=== PATIENT | male | born 1940 | race Caucasian/White ===

== ENCOUNTER 2018-02-19 13:58 | Emergency (ER) | payer MEDICARE, OTHER ==
[2018-02-19] MEDS ORDERED: Aspirin 81 MG Tab.Chew PO ONE (14:07)
--- NOTE | 2018-02-19 14:19 | EDM.PDOC ---
ED HPI GENERAL MEDICAL PROBLEM - General Chief Complaint: Chest Pain Stated Complaint: [id number] CHEST CHEST Time Seen by Provider: 02/19/18 14:00 Source of Information: Reports: Patient History Limitations: Reports: No Limitations - History of Present Illness INITIAL COMMENTS - FREE TEXT/NARRATIVE: This 77 yo male patient was brought to the ED by his son due to intermittent chest pain. The patient reports he started to have left sided chest pain that started at about 0900 this morning. 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 The patient reports he was in [place] for similar symptoms about 1 week ago, but was not advised of anything serious happening. The patient reports he was watching a game show when the symptoms started. The patient reports most of his pain is in the left lateral chest/rib area. The patient denies any shortness of breath or other problems at this time. Onset: Today Onset Date: 02/19/18 Onset Time: 09:00 Duration: Intermittent Location: Reports: Chest (left lateral chest pain) Quality: Reports: Ache, Sharp, Throbbing Improves with: Reports: None Worsens with: Reports: None Context: Reports: Other Associated Symptoms: Reports: Chest Pain - Related Data Allergies Allergy/AdvReac Type Severity Reaction Status Date / Time No Known Allergies Allergy Verified 02/19/18 14:06 Home Meds: Home Meds Gabapentin [Neurontin] 600 mg PO BID 02/19/18 [History] Glimepiride 6 mg PO DAILY 02/19/18 [History] Lisinopril 5 mg PO DAILY 02/19/18 [History] Metoprolol Tartrate 50 mg PO BID 02/19/18 [History] Simvastatin [Zocor] 80 mg PO DAILY 02/19/18 [History] metFORMIN HCl [Metformin HCl] 1,000 mg PO BID 02/19/18 [History] ED ROS GENERAL - Review of Systems Review Of Systems: ROS reveals no pertinent complaints other than HPI. ED EXAM, GENERAL - Physical Exam Exam: See Below Exam Limited By: No Limitations General Appearance: Alert, WD/WN, Moderate Distress Eye Exam: Bilateral Eye: EOMI, Normal Inspection, PERRL Ears: Normal External Exam, Normal Canal, Hearing Grossly Normal, Normal TMs Nose: Normal Inspection, Normal Mucosa, No Blood Throat/Mouth: Normal Inspection, Normal Lips, Normal Teeth, Normal Gums, Normal Oropharynx, Normal Voice, No Airway Compromise Head: Atraumatic, Normocephalic Neck: Normal Inspection, Supple, Non-Tender, Full Range of Motion Respiratory/Chest: No Respiratory Distress, Lungs Clear, Normal Breath Sounds, No Accessory Muscle Use, Chest Non-Tender Cardiovascular: Normal Peripheral Pulses, No Edema, No Gallop, No JVD, No Murmur , No Rub GI/Abdominal: Normal Bowel Sounds, Soft, Non-Tender, No Organomegaly, No Distention, No Abnormal Bruit, No Mass (Male) Exam: Deferred Rectal (Males) Exam: Deferred Back Exam: Normal Inspection, Full Range of Motion, NT Extremities: Normal Inspection, Normal Range of Motion, Non-Tender, Normal Capillary Refill, No Pedal Edema Neurological: Alert, Oriented, CN II-XII Intact, Normal Cognition, Normal Gait, Normal Reflexes, No Motor/Sensory Deficits Psychiatric: Normal Affect, Normal Mood Skin Exam: Warm, Dry, Intact, Normal Color, No Rash Lymphatic: No Adenopathy Course - Vital Signs Last Recorded V/S: Last Vital Signs Temp 36.4 C 02/19/18 14:00 Pulse 62 02/19/18 14:00 Resp 16 02/19/18 14:00 BP 182/69 H 02/19/18 14:00 Pulse Ox 98 02/19/18 14:00 - Orders/Labs/Meds Orders: Active Orders 24 hr Category Date Time Status EKG Documentation Completion [RC] URGENT Care 02/19/18 14:06 Ordered Chest 1V Frontal [CR] Urgent Exams 02/19/18 14:06 Ordered Labs: Laboratory Tests 02/19/18 02/19/18 Range/Units 14:14 14:14 WBC 8.4 (5.0-10.0) 10^3/uL RBC 4.08 L (4.6-6.2) 10^6/uL Hgb 12.8 L (14.0-18.0) g/dL Hct 38.2 L (40.0-54.0) % MCV 93.6 (80-100) fL MCH 31.4 (27.0-34.0) pg MCHC 33.5 (33.0-35.0) g/dL Plt Count 175 (150-450) 10^3/uL Neut % (Auto) 49.0 (42.2-75.2) % Lymph % (Auto) 37.8 (20.5-50.1) % Travis % (Auto) 10.2 H (2-8) % Eos % (Auto) 2.6 (1.0-3.0) % Baso % (Auto) 0.4 (0.0-1.0) % Sodium 139 (135-145) mmol/L Potassium 3.9 (3.6-5.0) mmol/L Chloride 106 (101-111) mmol/L Carbon Dioxide 23.0 (21.0-31.0) mmol/L Anion Gap 13.9 BUN 17 (7-18) mg/dL Creatinine 1.0 (0.6-1.3) mg/dL Est Cr Clr Drug Dosing 54.05 mL/min Estimated GFR (MDRD) > 60 BUN/Creatinine Ratio 17.00 Glucose 132 H (74-105) mg/dL Calcium 9.6 (8.4-10.2) mg/dl Total Bilirubin 0.8 (0.2-1.0) mg/dL AST 32 (10-42) IU/L ALT 25 (10-60) IU/L Alkaline Phosphatase 60 (42-121) IU/L Troponin I < 0.02 (0.00-0.02) ng/ml Total Protein 7.1 (6.7-8.2) g/dl Albumin 4.0 (3.2-5.5) g/dl Globulin 3.1 Albumin/Globulin Ratio 1.29 Meds: Medications Discontinued Medications Generic Name Dose Route Start Last Admin Trade Name Freq PRN Reason Stop Dose Admin Aspirin 324 mg 02/19/18 14:07 02/19/18 14:25 Aspirin PO 02/19/18 14:08 324 mg ONETIME ONE Administration Departure - Departure Time of Disposition: 15:21 Disposition: Home, Self-Care 01 Condition: Fair Clinical Impression: Nonspecific chest pain Instructions: Nonspecific Chest Pain Forms: ED Department Discharge Care Plan Goals: The patient and his son were advised of the examination, lab, EKG and x-ray results during the visit. The patient was encouraged to continue to monitor his symptoms. If the patient has any additional symptoms or concerns, the patient should visit his primary care facility or return to the emergency department. - My Orders Last 24 Hours: My Active Orders 02/19/18 14:06 EKG Documentation Completion [RC] URGENT Chest 1V Frontal [CR] Urgent - Assessment/Plan Last 24 Hours: My Active Orders 02/19/18 14:06 EKG Documentation Completion [RC] URGENT Chest 1V Frontal [CR] Urgent
[2018-02-19 14:44] LABS: ANION GAP 13.9; CHLORIDE,CL 106 mmol/L (101-111); SODIUM,NA 139 mmol/L (135-145)
--- NOTE | 2018-02-20 16:07 | EKG ---
02/19/2018 - AWN SANCHEZ I reviewed the EKG and agree with the machine's reading. [facility] /[id number]
== END 2018-02-19 16:00 | disposition home or self-care (01) ==
LOC: DL.ED 13:58
DX: R07.9 Chest pain, unspecified (principal); Z79.899 Other long term (current) drug therapy; Z79.84 Long term (current) use of oral hypoglycemic drugs
CPT/HCPCS: 36415; 71045; 80053; 84484; 85025; 93005; 93010; 99285; A9270; 99283

== ENCOUNTER 2022-02-16 09:27 | Emergency (ER) | payer MEDICARE, OTHER ==
[2022-02-16 11:15] LABS: ANION GAP 14.5 mEq/L (7-13); CHLORIDE,CL 106 mmol/L (98-107); SODIUM,NA 141 mmol/L (136-145)
[2022-02-16] MEDS ORDERED: Apixaban 5 MG Tab PO ONE (11:19)
== END 2022-02-16 11:35 | disposition home or self-care (01) ==
LOC: DL.ED 09:27
DX: R07.89 Other chest pain (principal); I48.92 Unspecified atrial flutter; I10 Essential (primary) hypertension; E11.9 Type 2 diabetes mellitus without complications; I25.10 Atherosclerotic heart disease of native coronary artery without angina pectoris; F17.210 Nicotine dependence, cigarettes, uncomplicated; E78.00 Pure hypercholesterolemia, unspecified; Z95.1 Presence of aortocoronary bypass graft; Z79.82 Long term (current) use of aspirin; Z79.84 Long term (current) use of oral hypoglycemic drugs
CPT/HCPCS: 36415; 71045; 80053; 82150; 83605; 83690; 83880; 84443; 84484; 85025; 86140; 99285-25; A9270-GY

== ENCOUNTER 2023-12-17 15:09 | Emergency (ER) | payer MEDICARE, OTHER ==
[2023-12-17 15:40] LABS: BASOPHILS PERCENT AUTO 0.2 % (0.0-1.0); EOSINOPHILS PERCENT AUTO 3.2 % (1.0-3.0); HEMOGLOBIN 12.2 g/dL (14.0-18.0); LYMPHOCYTES PERCENT AUTO 29.8 % (20.5-50.1); MEAN CORPUSCULAR HGB CONC 32.1 g/dL (33.0-35.0); MEAN CORPUSCULAR VOLUME 93.4 fL (80-100); MONOCYTES PERCENT AUTO 10.2 % (2-8); NEUTROPHILS PERCENT AUTO 56.6 % (42.2-75.2); PLATELET COUNT,PLT 212 10^3/uL (150-450); RED BLOOD CELL COUNT 4.07 10^6/uL (4.6-6.2); WHITE BLOOD CELL COUNT,WBC 8.1 10^3/uL (5.0-10.0)
[2023-12-17] MEDS: Sodium Chloride 0.9% 10 ML Syringe FLUSH PRN (15:58)
[2023-12-17 16:02] LABS: A/G RATIO 1.1; ALBUMIN 3.4 g/dL (3.4-5.0); ANION GAP 15.3 mEq/L (7-13); BILIRUBIN TOTAL 0.4 mg/dL (0.2-1.0); BUN/CREATININE RATIO 16.1 (No establ ref range); CALCIUM 10.1 mg/dL (8.5-10.1); CREATININE 1.61 mg/dL (0.70-1.30); EST CRCL DRUG DOSING (CG) 30.27 mL/min; MAGNESIUM 1.7 mg/dL (1.8-2.4); POTASSIUM,K 4.3 mmol/L (3.5-5.1); PROTEIN TOTAL,TP 6.6 g/dL (6.4-8.2)
[2023-12-17] MEDS: Sodium Chloride 0.9% 1,000 ML IV ONE (16:30)
== END 2023-12-17 17:25 | disposition home or self-care (01) ==
LOC: DL.ED 15:09
DX: M25.512 Pain in left shoulder (principal); E86.0 Dehydration; R94.4 Abnormal results of kidney function studies; I10 Essential (primary) hypertension; E78.00 Pure hypercholesterolemia, unspecified; I25.810 Atherosclerosis of coronary artery bypass graft(s) without angina pectoris; E11.9 Type 2 diabetes mellitus without complications; Z79.899 Other long term (current) drug therapy
CPT/HCPCS: 36415; 71045; 80053; 83735; 84484; 85025; 93005; 93010; 96360; 99284; J7030; J3490